=== PATIENT | female | born 1980 | race Caucasian/White ===

== ENCOUNTER 2023-01-04 10:02 | Outpatient (CLI) | payer BC | END 2023-01-04 10:03 | disposition home or self-care (01) | LOC: CSHMAMMO 10:02 | PROVIDERS: ATTEND Nurse Practitioner Family | DX: Z12.31 Encounter for screening mammogram for malignant neoplasm of breast (principal); Z80.3 Family history of malignant neoplasm of breast | CPT/HCPCS: 77063; 77067 ==

== ENCOUNTER 2024-02-18 08:07 | Outpatient (CLI) | payer BC | END 2024-02-18 08:08 | disposition home or self-care (01) | LOC: CSHMAMMO 08:07 | PROVIDERS: ATTEND Obstetrics & Gynecology | DX: Z12.31 Encounter for screening mammogram for malignant neoplasm of breast (principal); Z80.3 Family history of malignant neoplasm of breast | CPT/HCPCS: 77063; 77067 ==